=== PATIENT | male | born 1955 | race Caucasian/White ===

== ENCOUNTER → 2018-05-11 | Outpatient (CLI) | payer BC ==
--- NOTE | ~2018-05-11 | 2DMMODE ---
[facility] [place] [address] 2 D/M-MODE ECHOCARDIOGRAM Name: MITCHELL MCMAHAN Room #: REG [facility]#: [id number] Admission: 05/11/18 Attend Phys: Gaudencio Fuchs Discharge: Date of : 53 Date of Service: 05/11/18 1010 Report #: [id number] THIS REPORT FOR: //name// APPROVED REPORT Study performed: 05/11/2018 09:04:09 EXAM: Comprehensive 2D, Doppler, and color-flow Echocardiogram Patient Location: Out-Patient Status: routine BSA: 2.28 HR: 60 bpm BP: 164/86 mmHg Rhythm: NSR Other Information Study Quality: Adequate Indications Pacemaker 2D Dimensions RVDd: 35.87 mm IVSd: 11.13 (7-11mm) LVOT Diam: 23.95 (18-24mm) LVDd: 43.35 mm PWd: 10.98 (7-11mm) Ascending Ao: 35.03 (22-36mm) LVDs: 21.86 (25-40mm) Aortic Root: 36.53 mm Volumes Left Atrial Volume (Systole) Single Plane 4CH: 23.66 mL Single Plane 2CH: 27.47 mL LA ESV Index: 12.00 mL/m2 Aortic Valve AoV Peak Jesús.: 0.81 m/s AO Peak Gr.: 2.62 mmHg LVOT Max P.61 mmHg LVOT Max V: 0.81 m/s ANGÉLICA Vmax: 4.50 cm2 Mitral Valve E/A Ratio: 1.4 MV Decel. Time: 207.94 ms MV E Max Jesús.: 0.64 m/s [facility] [address] [place] [address] 2 D/M-MODE ECHOCARDIOGRAM Name: MARJMITCHELL Room #: REG [facility]#: [id number] Admission: 05/11/18 Attend Phys: Gaudencio Fuchs Discharge: Date of : 53 Date of Service: 05/11/18 1010 Report #: [id number] MV A Jesús.: 0.46 m/s MV PHT: 60.30 ms IVRT: 101.50 ms Pulmonary Valve PV Peak Jesús.: 1.13 m/s PV Peak Gr.: 5.22 mmHg Tricuspid Valve RAP Estimate: 5.00 mmHg Left Ventricle The left ventricle is normal size. There is normal LV segmental wall motion. There is normal left ventricular wall thickness. Left ventricular systolic function is normal. LVEF is 55-60%. Moderate diastolic dysfunction is present (pseudonormal filling). Right Ventricle The right ventricle is normal size. The right ventricular systolic function is normal. Pacemaker lead is present in the right ventricle. Atria The left atrium size is normal. The right atrium size is normal. Aortic Valve The aortic valve is normal in structure. Trace aortic regurgitation. There is no aortic valvular stenosis. Mitral Valve The mitral valve is normal in structure. Trace mitral regurgitation. Tricuspid Valve The tricuspid valve is normal in structure. There is no tricuspid valve regurgitation noted. Unable to assess PA pressure. Pulmonic Valve The pulmonary valve is normal in structure. Trace pulmonic regurgitation. Great Vessels The aortic root is normal in size. The ascending aorta is normal in size. IVC is normal in size and collapses >50% with inspiration. Pericardium [facility] [place] [address] 2 D/M-MODE ECHOCARDIOGRAM Name: MITCHELL MCMAHAN Room #: REG CL [facility]#: [id number] Admission: 05/11/18 Attend Phys: Gaudencio Fuchs Discharge: Date of : 53 Date of Service: 05/11/18 1010 Report #: [id number] There is no pericardial effusion. <Conclusion> The left ventricle is normal size. There is normal left ventricular wall thickness. Left ventricular systolic function is normal. The right ventricle is normal size. Pacemaker lead is present in the right ventricle. The left atrium size is normal. Trace aortic regurgitation. Trace mitral regurgitation. <ELECTRONICALLY SIGNED> By: Mikel Mcclellan MD 05/11/18 1010 1010 1010 Mikel Mcclellan MD /PABLO
== END ==
LOC: CV 06:57
DX: Z95.0 Presence of cardiac pacemaker (principal)

== ENCOUNTER → 2020-10-11 | Outpatient (CLI) | payer BC | LOC: SJCVCIMAG 08:20 | PROVIDERS: ATTEND Internal Medicine Cardiovascular Disease | DX: I07.1 Rheumatic tricuspid insufficiency (principal); R00.0 Tachycardia, unspecified; Z95.0 Presence of cardiac pacemaker ==